=== PATIENT | female | born 1970 | race African-American/Black ===

== ENCOUNTER 2017-03-01 11:28 | Emergency (ER) | payer MEDICAID ==
[~2017-03-01] VITALS: Ht 154.9 cm; Wt 123.0 kg
[2017-03-01] MEDS ORDERED: SODIUM CHLORIDE 0.9% 500 ML IV ONE (13:15)
[2017-03-01] MEDS ORDERED: KETOROLAC 15MG/ML VIAL IV ONE (13:15)
[2017-03-01 14:20] LABS: CLARITY URINE CLEAR (CLEAR); COLOR URINE YELLOW (YELLOW); GLUCOSE URINE NEGATIVE (NEGATIVE); KETONES URINE NEGATIVE (NEGATIVE); LEUKOCYTE ESTERASE URINE NEGATIVE (NEGATIVE); NITRITE URINE NEGATIVE (NEGATIVE); OCCULT BLOOD URINE NEGATIVE (NEGATIVE); PROTEIN URINE NEGATIVE (NEGATIVE); SPECIFIC GRAVITY URINE 1.016 (1.005-1.030); UROBILINOGEN URINE 0.2 E.U./dL (0.2-1.0)
[2017-03-01 14:24] LABS: BASOPHILS % 1.3 % (0.0-2.0); HEMATOCRIT. 37.5 % (36.0-48.0); LYMPHOCYTES % 26.8 % (20.0-50.0); MEAN CORPUSCULAR HEMOGLOBIN 28.4 pg (28.0-32.0); MEAN CORPUSCULAR VOLUME 88.7 fL (81.0-99.0); MEAN PLATELET VOLUME 8.4 fl (7.4-10.4); MONOCYTES % 7.1 % (2.0-8.0); NEUTROPHILS % 61.8 % (40.0-76.0); PLATELET 293 x1000/uL (130-400); RED BLOOD CELL COUNT 4.23 mill/uL (4.2-5.4); RED CELL DISTRIBUTION WIDTH 13.5 % (11.6-14.6); WHITE BLOOD COUNT 5.7 x1000/uL (4.5-11.0)
[2017-03-01 14:32] LABS: CHLORIDE 104 mEq/L (98-107); INDEX HEMOLYSI 1 (1-3); INDEX ICTERIC 1 (1-4); INDEX LIPEMIC 1 (1-3)
[2017-03-01 14:43] LABS: ALANINE AMINOTRANSFERASE 26 IU/L (13-61); ALBUMIN 3.3 g/dL (3.4-5.0); ANION GAP 12; CALCIUM 8.7 mg/dL (8.5-10.1); CARBON DIOXIDE 27 mEq/L (21-32); UREA NITROGEN BLOOD 12 mg/dL (7-21); eGFR > 60 mL/min (>60)
[2017-03-01 15:01] VITALS: BP 133/86
== END 2017-03-01 15:31 | disposition home or self-care (01) ==
LOC: ER 14:16
DX: G43.909 Migraine, unspecified, not intractable, without status migrainosus (principal); R42 Dizziness and giddiness
CPT/HCPCS: 36415; 80053; 81003; 85025; 96361; 96374; 99284; C1893; J1885; J7040; Z7610